=== PATIENT | male | born 1960 | race African-American/Black ===

== ENCOUNTER 2019-07-17 15:02 | Emergency (ER) | payer MEDICAID ==
[~2019-07-17] VITALS: Ht 177.8 cm; Wt 80.0 kg
[2019-07-17] MEDS ORDERED: FUROSEMIDE 40MG/4ML VIAL IVP ONE (16:30)
[2019-07-17 16:44] LABS: BASOPHILS % 0.5 % (0.0-2.0); EOSINOPHILS % 0.1 % (0.0-5.0); HEMATOCRIT. 41.3 % (42.0-52.0); HEMOGLOBIN. 13.4 g/dL (14.0-18.0); MEAN CORPUSCULAR HEMOGLOBIN 28.4 pg (28.0-32.0); MEAN CORPUSCULAR VOLUME 87.4 fL (80.0-94.0); MEAN PLATELET VOLUME 9.3 fl (7.4-10.4); MONOCYTES % 4.4 % (2.0-8.0); PLATELET 137 x1000/uL (130-400); RED BLOOD CELL COUNT 4.72 mill/uL (4.7-6.1); RED CELL DISTRIBUTION WIDTH 19.2 % (11.6-14.6)
[2019-07-17 16:45] LABS: CHLORIDE 109 mEq/L (98-107)
[2019-07-17 17:12] LABS: DIGOXIN 0.1 ng/mL (0.9-2.0)
[2019-07-17] MEDS ORDERED: IPRATROPIUM BROMIDE (0.02%) 0.5MG/2.5ML NEB HHN STA (17:57)
[2019-07-17] MEDS ORDERED: METHYLPREDNISOLONE SOD SUCC 125 MG/2 ML VIAL IV STA (17:57)
[2019-07-17] MEDS ORDERED: ALBUTEROL (0.083%) 2.5MG/3ML NEB HHN STA (17:57)
[2019-07-17 19:44] VITALS: BP 113/86
== END 2019-07-17 20:40 | disposition short-term general hospital (02) ==
LOC: ER 15:02 → CANBEDREQ 22:23
DX: I50.9 Heart failure, unspecified (principal); E87.70 Fluid overload, unspecified; R60.0 Localized edema; Z88.6 Allergy status to analgesic agent
CPT/HCPCS: 36415; 71045; 80053; 80162; 83735; 83880; 84484; 85025; 93005; 94640; 96374; 96375; 99285; J1940; J2930; J7611; Z7610